=== PATIENT | female | born 1985 | race Caucasian/White ===

== ENCOUNTER 2017-12-30 15:52 | Inpatient (IN) ==
--- NOTE | 2017-12-30 16:30 | Emergency Department Note ---
Disposition Clinical Impression: Cellulitis Qualifiers: Site of cellulitis: unspecified site Qualified Code(s): L03.90 - Cellulitis, unspecified Disposition: Admitted As Inpatient Condition: Good Forms: ED Satisfaction Letter Lower Extremity Injury HPI - General Chief Complaint: ED Extremity Injury, Lower Stated Complaint: Right foot/leg infection back Time Seen by Provider: 12/30/17 16:11 Source: patient Mode of arrival: ambulatory Limitations: no limitations Nursing Notes Reviewed: Yes Vital Signs Reviewed: Yes - History of Present Illness HPI Narrative: patient presents with concern over a RLE cellulitis. patient c/o streaking, redness, erythema, to her R leg. Has been on ABX from outpatient. Patient symptoms started approximately last week. She noticed redness and streaking. She was seen in the emergency department and placed on Keflex 500 mg 3 times a day. She was initially helping but has gotten worse despite her taking antibiotics. Patient's got a wound to the metacarpal phalangeal joint of the first toe on the right foot with redness that goes from there to the mid thigh the follows the lymphatic vessels. A bedside ultrasound was performed and DVT was not found. Ultrasound of the calf was not performed. The surrounding lesions did not show significant cellulitis. Concern for lymphangitis. The p atient erythema extending from the first part of the toe does have is concern for possible underlying injury or osteoarthritis. Patient will receive x-ray as well as further blood work to help delineate. Patient has not had nausea vomiting, fevers or chills, abdominal pain. - Related Data Home Medications Medication Instructions Recorded Confirmed Buprenorphine HCl/Naloxone HCl 2 tab SL DAILY 12/30/17 12/30/17 [Buprenorphin-Naloxon 8-2 mg Sl] Allergies Allergy/AdvReac Type Severity Reaction Status Date / Time No Known Allergies Allergy Verified 08/10/17 20:52 All systems ED: reviewed and negative except as stated. 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 GENERAL history - Social History Smoking Status: Never smoker Smokeless Tobacco Status: No Alcohol use: Reports: none Drug use: Reports: none Physical Exam General appearance: NAD, conversant Eyes: anicteric sclerae, moist conjunctivae; no lid-lag; PERRL HENT: Atraumatic; oropharynx clear with moist mucous membranes Neck: Normal appearance; Trachea midline Chest: Symmetrical chest rise; No respiratory distress Extremities: Patient right toe at the left foot first toe phalangeal metacarpal interspace with Skin: Normal temperature, turgor and texture; no rash, ulcers or subcutaneous nodules Psych: Appropriate mood and affect Neuro: Awake and alert Course - Reevaluation(s) Reevaluation #1: ESR and CRP elevated. No elevated white count. X-rays negative for osteomyelitis. We will discuss with podiatry. - Consultations Consultation #1: Discussed with podiatry, Dr. Britton. Patient does not qualify for outpatient treatment. Trochars IV antibiotics and further investigation. He will consult on the patient tomorrow. Vital Signs Temperature 97.8 F 12/30/17 15:57 Pulse Rate 67 12/30/17 15:57 Respiratory Rate 18 12/30/17 15:57 Blood Pressure 133/81 12/30/17 15:57 O2 Sat by Pulse Oximetry 99 12/30/17 15:57 Temperature 97.8 F 12/30/17 16:30 Pulse Rate 67 12/30/17 16:30 Respiratory Rate 18 12/30/17 16:30 Blood Pressure 133/81 12/30/17 16:30 O2 Sat by Pulse Oximetry 99 12/30/17 16:30 Oxygen Delivery Oxygen Delivery Room Air Extremity Injury, Lower - Lab Data Result diagrams: 12/30/17 17:12 12/30/17 17:12 Lab Results 12/30/17 12/30/17 12/30/17 Range/Units 17:12 17:12 17:12 WBC 5.5 (4.3-11.1) K/mcL RBC 4.14 (3.82-4.97) M/mcL Hgb 11.7 (11.5-15.4) g/dL Hct 35.7 (35.3-44.9) % MCV 86.2 (83.0-100.0) fL MCH 28.3 (28.0-33.3) pg MCHC 32.8 (31.6-35.5) g/dL RDW 12.9 (11.5-14.5) % Plt Count 225 (140-400) K/mcL MPV 10.3 (9.4-12.4) fL Immature Gran % 0.2 (0-4) % Seg Neutrophils % 56.6 % Lymphocytes % 33.0 % Monocytes % 7.6 % Eosinophils % 2.2 % Basophils % 0.4 % Neutrophils # 3.1 (1.6-8.9) K/mcL Lymphocytes # 1.8 (0.6-4.6) K/mcL Monocytes # 0.4 (0.0-1.3) K/mcL Eosinophils # 0.1 (0.0-0.6) K/mcL Basophils # 0.0 (0.0-0.2) K/mcL ESR 48 H (0-15) mm/hr Sodium 139 (136-145) mEq/L Potassium 4.0 (3.5-5.1) mEq/L Chloride 104 (98-107) mEq/L Carbon Dioxide 29 (23-29) mEq/L BUN 10 (6-20) mg/dL Creatinine 0.51 L (0.60-1.20) mg/dL Est GFR ( Amer) > 60 (> 60) Est GFR (Non-Af Amer) > 60 (> 60) BUN/Creatinine Ratio 20 (6-26) Glucose 93 (70-105) mg/dL Calculated Osmolality 287 (280-300) Lactic Acid (0.5-2.2) mmol/L Calcium 9.3 (8.6-10.3) mg/dL C-Reactive Protein 18 H (Less than 10) mg/L 12/30/ Range/Units 17:12 WBC (4.3-11.1) K/mcL RBC (3.82-4.97) M/mcL Hgb (11.5-15.4) g/dL Hct (35.3-44.9) % MCV (83.0-100.0) fL MCH (28.0-33.3) pg MCHC (31.6-35.5) g/dL RDW (11.5-14.5) % Plt Count (140-400) K/mcL MPV (9.4-12.4) fL Immature Gran % (0-4) % Seg Neutrophils % % Lymphocytes % % Monocytes % % Eosinophils % % Basophils % % Neutrophils # (1.6-8.9) K/mcL Lymphocytes # (0.6-4.6) K/mcL Monocytes # (0.0-1.3) K/mcL Eosinophils # (0.0-0.6) K/mcL Basophils # (0.0-0.2) K/mcL ESR (0-15) mm/hr Sodium (136-145) mEq/L Potassium (3.5-5.1) mEq/L Chloride (98-107) mEq/L Carbon Dioxide (23-29) mEq/L BUN (6-20) mg/dL Creatinine (0.60-1.20) mg/dL Est GFR ( Amer) (> 60) Est GFR (Non-Af Amer) (> 60) BUN/Creatinine Ratio (6-26) Glucose (70-105) mg/dL Calculated Osmolality (280-300) Lactic Acid 1.0 (0.5-2.2) mmol/L Calcium (8.6-10.3) mg/dL C-Reactive Protein (Less than 10) mg/L
[2017-12-30 17:35] LABS: Basophils % 0.4 %; Eosinophils # 0.1 K/mcL (0.0-0.6); Eosinophils % 2.2 %; Hematocrit 35.7 % (35.3-44.9); Hemoglobin 11.7 g/dL (11.5-15.4); Immature Granulocytes % 0.2 % (0-4); Lymphocytes # 1.8 K/mcL (0.6-4.6); Mean Corpuscular HGB Conc 32.8 g/dL (31.6-35.5); Mean Corpuscular Hemoglobin 28.3 pg (28.0-33.3); Mean Corpuscular Volume 86.2 fL (83.0-100.0); Mean Platelet Volume 10.3 fL (9.4-12.4); Monocytes # 0.4 K/mcL (0.0-1.3); Monocytes % 7.6 %; Neutrophils # 3.1 K/mcL (1.6-8.9); Platelet Count 225 K/mcL (140-400); Red Blood Count 4.14 M/mcL (3.82-4.97); Red Cell Distribution Width 12.9 % (11.5-14.5); Segmented Neutrophils % 56.6 %
[2017-12-30 17:56] LABS: BUN/Creatinine Ratio 20 (6-26); Blood Urea Nitrogen 10 mg/dL (6-20); C-Reactive Protein 18 mg/L (Less than 10); Calcium 9.3 mg/dL (8.6-10.3); Carbon Dioxide 29 mEq/L (23-29); Chloride 104 mEq/L (98-107); Glucose 93 mg/dL (70-105); Osmolality,Calculated 287 (280-300); Sodium 139 mEq/L (136-145); eGFR For Non-African Americans > 60 (> 60)
[2017-12-30] MEDS ORDERED: cefTRIAXone 1,000 MG in Water for inj. (sterile) 20 ML 10 ML IVP ONE (18:27)
[2017-12-30] MEDS ORDERED: Ondansetron 4 MG/2 ML VIAL IVP PRN (20:43)
[2017-12-31] MEDS ORDERED: Naloxone 0.4 MG/ML INJ IVP PRN (02:02)
--- NOTE | 2017-12-31 02:13 | Internal Med History&Physical ---
Date of Encounter: 12/31/17 Time of Encounter: 01:45 Internal Medicine - H&P: HPI Chief complaint: Cellulitis Admitted From: Emergency Dept Plans for Post Hospital Care: Home History of present illness: Ms. Abbott is a 32 year old female Patient presented to the emergency room after failing outpatient management for cellulitis. She initially presented to the emergency room on the of this month and was diagnosed with cellulitis, she was given a dose of IV Rocephin and prescription for Keflex to take at home. She says that the redness did improve initially but over the last day or so it has gotten worse and more tender. Erythema extends up to the groin all the way down to the great toe. She does work at a job that requires her to be on her feet all day, and this makes the pain worse. She denies history of diabetes. She has no family doctor, and denies other medical history aside from being on Suboxone for a past pain medication problem. She denies chest pain, abdominal pain, dysuria, nausea, vo miting, diarrhea, constipation. She has never had an infection like this before. She denies any significant event that led to the initial wound as well. The emergency room CBC and BMP were within normal limits. CRP was elevated at 18, ESR elevated to 48. A left foot x-ray was ordered however the wound is on the right foot. Radiologist did however read it as a right foot, stating there were no significant findings of the right foot. She was started on IV antibiotics, podiatry was consulted and will see the patient in the morning. Upon my assessment, patient denies complaints. She states that she feels tired. The emergency room has traced the area of erythema, and it has not extended beyond this tracing. She had tried a athlete's foot cream initially, with no improvement as well. Past Med Surg Social Fam HX - Past Medical History Medical history: asthma, GERD Psychiatric history: no psych history - Past Surgical History Surgical History: no surgical history Additional surgical history: wisdom teeth removed - Social History Smoking Status: Never smoker Smokeless Tobacco Status: No Alcohol use: none Drug use: none - Family History Mother Living Status: Still Living Hx Family Cardiac Disorders: Yes (mi) Hx Family Respiratory Disorders: Yes (asthma, copd) Father Living Status: Still Living Hx Family Endocrine Disorder: Yes (kidney disease) Internal Medicine - H&P: Meds Buprenorphine HCl/Naloxone HCl [Buprenorphin-Naloxon 8-2 mg Sl] 2 tab SL DAILY 12/30/17 [History] Allergy/AdvReac Type Severity Reaction Status Date / Time No Known Allergies Allergy Verified 08/10/17 20:52 All Systems PM: A 10-system review of systems was performed and is negative for pertinent findings except as documented above in the HPI. - Constitutional Vitals: Temp Pulse Resp BP Pulse Ox 98.3 F 79 15 139/83 98 12/30/17 23:43 12/30/17 23:43 12/30/17 23:43 12/30/17 23:43 12/30/17 23:43 General appearance: Present: cooperative, A&O X 3, pleasant, no acute distress, answers questions appropriately Exam: As above - Head Head exam: Present: normal inspection - Eye Eye exam: Present: EOMI, normal appearance - Respiratory Respiratory exam: Present: CTAB. Absent: chest wall tenderness, decreased breath sounds, respiratory distress, wheezes - Cardiovascular Cardiovascular exam: Present: RRR. Absent: diastolic murmur, systolic murmur - GI/Abdominal GI/Abdominal exam: Present: normal bowel sounds, soft. Absent: tenderness - Extremities Exam Extremities exam: Present: tenderness, warm, radial pulses palpable and symmetrical. Absent: calf tenderness, pedal edema Additional comments: Right lower extremity has erythema from groin down to the foot medially, mildly tender to palpation. Redness if blanching with pressure. Right great toe ulceration on plantar surface, shallow with no discharge. 2cm x 1cm in size at site of MTP - Neurological Exam Neurological exam: Present: no focal deficits, strengths equal and symetr throughout. Absent: motor sensory deficit, facial droop, speech deficit - Skin Skin exam: Present: dry, erythema, rash, warm Additional comments: See extremities exam above Internal Med - H&P Results - Labs CBC & Chem 7: 12/31/17 04:28 12/31/17 04:28 Labs: Short CBC 12/30/17 Range/Units 17:12 WBC 5.5 (4.3-11.1) K/mcL Hgb 11.7 (11.5-15.4) g/dL Hct 35.7 (35.3-44.9) % Plt Count 225 (140-400) K/mcL Neutrophils # 3.1 (1.6-8.9) K/mcL BMP 12/30/17 17:12 Sodium 139 Potassium 4.0 Chloride 104 Carbon Dioxide 29 BUN 10 Creatinine 0.51 L Glucose 93 Calcium 9.3 - Impressions ITS Impressions Foot X-Ray 12/30/17 16:35 IMPRESSION: No significant finding in the right foot. D/ / Clinton Latham MD / Clinton Latham MD Interpreting Provider: Clinton Latham MD - Assessment and plan (1) Cellulitis Current Visit: Yes Status: Acute Assessment and plan: Extends from groin to the patient's foot. She has failed outpatient therapy with Keflex and IV Rocephin which was given to her on the . Vital signs stable. She was started on vancomycin and ceftriaxone in the emergency room. Continue IV antibiotics Follow-up blood cultures when they are available Podiatry consult in the morning Avoid narcotic pain medication, Tylenol as needed. Checking A1c in the a.m. labs Qualifiers: Site of cellulitis: unspecified site Qualified Code(s): L03.90 - Cellulitis, unspecified (2) Right leg pain Current Visit: Yes Status: Acute Assessment and plan: Secondary to cellulitis likely resulting from right great toe shallow ulcer. Treatment as above Podiatry consult in the morning (3) DVT prophylaxis Current Visit: Yes Status: Acute Assessment and plan: Subcutaneous heparin - Time Spent With Patient Total time spent is greater than 50% in coordination of care (as documented) at patient's floor/unit and/or counseling patient: Greater than 35 minutes
[2017-12-31] MEDS ORDERED: Acetaminophen 325 MG TABLET PO PRN (02:22)
[2017-12-31] MEDS ORDERED: Vancomycin 1,750 MG in 0.9 % Sodium Chloride 250 ML IVPB SCH (03:00)
[2017-12-31 04:59] LABS: Hematocrit 32.8 % (35.3-44.9); Hemoglobin 10.6 g/dL (11.5-15.4); Mean Corpuscular HGB Conc 32.3 g/dL (31.6-35.5); Mean Corpuscular Hemoglobin 27.7 pg (28.0-33.3); Mean Corpuscular Volume 85.9 fL (83.0-100.0); Mean Platelet Volume 10.2 fL (9.4-12.4); Platelet Count 217 K/mcL (140-400); Red Blood Count 3.82 M/mcL (3.82-4.97)
[2017-12-31 05:09] LABS: BUN/Creatinine Ratio 20 (6-26); Blood Urea Nitrogen 11 mg/dL (6-20); Calcium 8.9 mg/dL (8.6-10.3); Carbon Dioxide 29 mEq/L (23-29); Chloride 105 mEq/L (98-107); Glucose 103 mg/dL (70-105); Osmolality,Calculated 292 (280-300); Potassium 4.3 mEq/L (3.5-5.1); Sodium 141 mEq/L (136-145); eGFR For Non-African Americans > 60 (> 60)
[2017-12-31] MEDS: *HR* Heparin 5,000 UNIT/ML VIAL SQ SCH ×2 (06:32→18:05)
[2017-12-31 08:35] LABS: Estimated Average Glucose 120 mg/dl; Hemoglobin A1C 5.8 %
[2017-12-31] MEDS: cefTRIAXone 1,000 MG in Water for inj. (sterile) 20 ML 10 ML IVP SCH (09:00)
--- NOTE | 2017-12-31 10:27 | Event Note ---
Date of Encounter: 12/31/17 Time of Encounter: 10:25 Patient reports improvement in swelling and redness on her right lower extremity. She does have tenderness over her right foot on the plantar surface of the great toe. Also has mild right inguinal region tenderness. No fevers or chills reported overnight. We will continue current IV antibiotics. Limb elevation recommended. Await podiatry evaluation.
--- NOTE | 2017-12-31 14:42 | Podiatry Consult Note ---
Date of Encounter: 12/31/17 Time of Encounter: 11:35 Assessment and Plan (1) Cellulitis Current visit: Yes Status: Acute Laina-sized area of erythema noted to right MTPJ. Warm to touch Uric acid ordered. Erythema and edema noted to right lower extremity streaking of to right groin area. Positive Homans sign, positive pain with calf squeeze. Ordered right lower extremity venous Dopplers. Primary managing antibiotics. Qualifiers: Site of cellulitis: unspecified site Qualified Code(s): L03.90 - Cellulitis, unspecified (2) Tinea pedis, right Current visit: Yes Status: Acute Tinea pedis noted to right submetatarsal #1 and between webspaces. Ketoconazole 2% ordered. History of Present Illness HPI: Ms. Abbott is a 32 year old female with PMH of asthma, GERD. She denies being a smoker, illicit drug use despite taking Suboxone, ETOH abuse. Nurse reports patient has history of abuse of pain medication. Patient reports on the she started working at a [employer] 12 hour shifts, when she began wearing tennis shoes. She reports shoes were tight on her toes and causing pain that subsided after a few days. She reports itching and dryness to the right first sub- metatarsal. She states that she purchased [id number] athlete's foot cream and sprayed her shoes. Reports 5 days after she began to have pain on the top of her foot. She denies any trauma to site that she can remember. Reports 6 days after she began to have red splotchy streaking up her leg. She then noticed that the area of atheletes foot to the plantar side of foot had split. She went to the ER on the where she received Rocephin IM and was sent home on Keflex by mouth. She finished a week of antibiotics stating she missed a few doses but then doubled up on her other doses. She completed antibiotics and the pain and erythema were not improving so she came to the ER last evening . Mr. Powell is a 32-year-old female with edema and erythema noted to right lower extremity. Area of erythema marked. Warm to touch. Positive Homans sign. Pain with calf squeeze. Fissuring noted to right first submetatarsal in between webspaces. Past Med Surg Social Fam HX - Past Medical History Medical history: asthma, GERD Psychiatric history: no psych history - Past Surgical History Surgical History: no surgical history Additional surgical history: wisdom teeth removed - Social History Smoking Status: Never smoker Smokeless Tobacco Status: No Alcohol use: none Drug use: none - Family History Mother Living Status: Still Living Hx Family Cardiac Disorders: Yes (mi) Hx Family Respiratory Disorders: Yes (asthma, copd) Father Living Status: Still Living Hx Family Endocrine Disorder: Yes (kidney disease) Medications and Allergies Buprenorphine HCl/Naloxone HCl [Buprenorphin-Naloxon 8-2 mg Sl] 2 tab SL DAILY 12/30/17 [History] Allergy/AdvReac Type Severity Reaction Status Date / Time No Known Allergies Allergy Verified 08/10/17 20:52 All Systems Reviewed: The remainder of the systems were reviewed and are negative - Constitutional Constitutional: no fever(s) - Cardiovascular Cardiovascular: leg edema, pedal edema - Respiratory Respiratory: no dyspnea - Musculoskeletal Musculoskeletal: no muscle weakness, no numbness, no tingling Physical Exam - Constitutional Vitals: Temp Pulse Resp BP Pulse Ox 98.6 F 69 18 137/63 95 12/31/17 10:51 12/31/17 10:51 12/31/17 10:51 12/31/17 10:51 12/31/17 10:51 Exam: Constitiutional: Alert and oriented x 3. Vascular: 3/4 DP/PT bilaterally, CFT <3 sec to all digits, warm to warm from tibia to toes bilaterally, positive pain with calf squeeze, positive homans sign, 2+/4 edema RLE Neurologic: Positive light touch and pinprick test, normal plantar response, Normal position sense dorsiflexion/plantar flexion Dermatologic: Fissuring and flaking noted to right submetatarsal and in between webbed spaces. Erythema and edema noted to RLE. Area of erythema marked. Warm to touch. Dime sized area over right MTPJ red and warm to touch. Musculoskeletal: 5/5 muscle strength and normal tone bilaterally. Results - Labs Result Diagrams: 12/31/17 04:28 12/31/17 04:28 Labs: Abnormal lab results Hgb 10.6 g/dL (11.5-15.4) L 12/31/17 04:28 Hct 32.8 % (35.3-44.9) L 12/31/17 04:28 MCH 27.7 pg (28.0-33.3) L 12/31/17 04:28 ESR 48 mm/hr (0-15) H 12/30/17 17:12 Creatinine 0.55 mg/dL (0.60-1.20) L 12/31/17 04:28 Hemoglobin A1c 5.8 % (-5.6) H 12/31/17 04:28 C-Reactive Protein 18 mg/L (Less than 10) H 12/30/17 17:12 H & H 12/30/17 12/31/17 Range/Units 17:12 04:28 Hgb 11.7 10.6 L (11.5-15.4) g/dL Hct 35.7 32.8 L (35.3-44.9) % All other labs normal. - Diagnostic results Ankle/Foot x-ray: report reviewed Consult Discharge Plan - Plan Referrals: NONE,PCP [Primary Care Provider] -
[2018-01-01] MEDS: Ketoconazole 2% CRM 15 GM TUBE TP SCH ×2 (00:20→09:35)
[2018-01-01] MEDS: *HR* Heparin 5,000 UNIT/ML VIAL SQ SCH (06:10)
[2018-01-01] MEDS: cefTRIAXone 1,000 MG in Water for inj. (sterile) 20 ML 10 ML IVP SCH (09:35)
--- NOTE | 2018-01-01 10:07 | Internal Med Progress Note ---
Hospitalist Progress Note - Encounter Date of Encounter: 01/01/18 Time of Encounter: 08:10 - Subjective Interval History: Ms. Abbott is a 32Yo Female. Hospital day 1. Pt presented to ER last week for cellulitis of the RLE. Pt received a shot of rocephin and a prescription for Kefflex for outpatient management. 12/22/17 Pt stated redness and erythema initially started to subside, but increased in severity and tenderness about 2-3 days ago. Erythema and redness initially was located from the right great toe up to the groin area. 12/30/17 Right foot Xray was unremarkable 12/30/30 Podiatry ordered RLE venous doppler(found no DVT) and recommended continue antibiotics, noticed tinea pedis, ketoconazole ordered Today pt states she is doing better than yesterday. Area of erythema is marked and has not extended past the marked area. Pt denies fever, NVD, abdominal pain, constipation, streaking, SOB, chest pain, hematuria, dysuria. Pt does admit to some edema of the right LE, fatigue, as well as erythema/warmth in the right groin region, she states she has numbness and tingling in the right LE especially in the right heel that also occurred yesterday. The numbness/tingling has not worsened and has remained constant. - Exam Vitals: Temp Pulse Resp BP Pulse Ox 98.3 F 61 16 121/75 91 01/01/18 07:45 01/01/18 07:45 01/01/18 07:45 01/01/18 07:45 01/01/18 07:45 Exam: General: AAOX3, NAD, WDWN HEENT: normocephalic, atraumatic Cardiovascular: RRR, no rubs, no murmurs Lung: CTAB, no wheezing Abdomen: Normal BSX4, soft nontender to palpation, nondistended MSK: 5/5 strength in the LE bilaterally Neuro: sensation and pinprick normal in LE bilaterally Skin: erythema/warmth in the right groin area down to the medial right foot, shallow ulceration of right great toe at the metarsophalangeal joint without pus or other discharge - Assessment and Plan (1) Cellulitis Current Visit: Yes Status: Acute Assessment and Plan: erythema from right groin down to medial right foot, improved. Given Rocephin and Kefflex on 12/22/17 and failed outpatient management Returned to ED on 12/30/17 given IV vancomycin and ceftriaxone Blood cultures are being monitored for growth podiatry ordered RLE doppler which was negative for DVT, ordered ketoconazole for tinea pedis on right (2) Tinea pedis, right Current Visit: Yes Status: Acute (3) DVT prophylaxis Current Visit: Yes Status: Acute Assessment and Plan: Plan: -on heparin SQ - Time Spent with Patient Total time spent is greater than 50% in coordination of care (as documented) at patient's floor/unit and/or counseling patient: Internal Medicine: Result - Labs CBC & Chem 7: 12/31/17 04:28 12/31/17 04:28 - Impressions Impressions Foot X-Ray 12/30/17 16:35 IMPRESSION: No significant finding in the right foot. D/ / Clinton Latham MD / Clinton Latham MD Interpreting Provider: Clinton Latham MD Consult Discharge Plan - Plan Referrals: NONE,PCP [Primary Care Provider] - (1) Cellulitis Qualifiers: Site of cellulitis: unspecified site Qualified Code(s): L03.90 - Cellulitis, unspecified
--- NOTE | 2018-01-01 11:17 | Podiatry Progress Note ---
Date of Encounter: 01/01/18 Time of Encounter: 08:10 - Assessment and Plan (1) Cellulitis Current Visit: Yes Status: Acute Laina-sized area of erythema noted to right MTPJ. Warm to touch Uric acid 3.4. Erythema and edema noted to right lower extremity to right groin area, decreasing in size Positive pain with calf squeeze, improved since yesterday RLE venous Dopplers negative. Primary managing antibiotics. Qualifiers: Site of cellulitis: unspecified site Qualified Code(s): L03.90 - Cellulitis, unspecified (2) Tinea pedis, right Current Visit: Yes Status: Acute Tinea pedis noted to right submetatarsal #1 and between webspaces, improved from yesterday. Ketoconazole 2% ordered. Subjective Interval history: Patient sitting in bed. Alert oriented 3. Denies any overnight complications. Reports improvement of right plantar. Objective - Vital Signs Vital Signs: Vital Signs Temp Pulse Resp BP Pulse Ox 01/01/18 07:45 98.3 F 61 16 121/75 91 01/01/18 03:52 98.3 F 76 16 130/84 98 12/31/17 23:46 97.6 F 64 18 113/74 97 12/31/17 19:35 97.8 F 76 19 117/75 98 12/31/17 16:00 98.1 F 76 14 118/71 96 12/31/17 14:55 98.6 F 85 18 117/76 100 Intake and Output 12/31/17 01/01/18 01/01/18 23:59 07:59 15:59 Intake Total 250 / 250 150 / 150 260 / 260 Balance 250 / 250 150 / 150 260 / 260 Intake: IV Fluids 250 / 250 260 / 260 Rocephin 1,000 MG In Water for inj. (sterile) 10 ML @ 600 mls/ hr IVP DAILY [facility] Rx#:[id number] Vancocin 1,250 MG In 0.9 % 250 / 250 250 / 250 Sodium Chloride 250 ML @ 166.67 mls/hr IVPB Q12H [facility] Rx#: [id number] Oral 0 / 0 150 / 150 Other: Meal Lunch Percent of Meal Consumed 100% # Voids 1 1 Weight 119.98 kg Patient Weight 01/01/18 23:59 Weight 119.98 kg - Exam Exam: Constitiutional: Alert and oriented x 3. Vascular: 3/4 DP/PT bilaterally, CFT <3 sec to all digits, warm to warm from tibia to toes bilaterally, positive pain with calf squeeze reports less than yesterday, 1+/4 edema RLE Neurologic: Positive light touch and pinprick test, normal plantar response, Normal position sense dorsiflexion/plantar flexion Dermatologic: Fissuring and flaking noted to right submetatarsal and in between webbed spaces, improved from yesterday. Erythema and edema noted to RLE. Area of erythema marked, decreasing in size. Warm to touch. Dime sized area over right MTPJ red and warm to touch. Musculoskeletal: 5/5 muscle strength and normal tone bilaterally. - Lab Result Diagrams: 12/31/17 04:28 12/31/17 04:28 Labs: Abnormal lab results Hgb 10.6 g/dL (11.5-15.4) L 12/31/17 04:28 Hct 32.8 % (35.3-44.9) L 12/31/17 04:28 MCH 27.7 pg (28.0-33.3) L 12/31/17 04:28 ESR 48 mm/hr (0-15) H 12/30/17 17:12 Creatinine 0.55 mg/dL (0.60-1.20) L 12/31/17 04:28 Hemoglobin A1c 5.8 % (-5.6) H 12/31/17 04:28 C-Reactive Protein 18 mg/L (Less than 10) H 12/30/17 17:12 Microbiology, Last 48 Hours 12/30/17 17:12 Blood Culture - Preliminary Peripheral Venipuncture Culture is incubating and being continuously monitored for growth. Final report to follow. 12/30/17 17:12 Blood Culture - Preliminary Peripheral Venipuncture Culture is incubating and being continuously tha tored for growth. Final report to follow. Consult Discharge Plan - Plan Referrals: NONE,PCP [Primary Care Provider] -
[2018-01-01 12:10] VITALS: BP 124/80
--- NOTE | 2018-01-01 12:14 | Discharge Summary ---
<Valdo Manzano - Last Filed: 01/01/18 13:39> - NOTES TO OUTPATIENT PROVIDER Notes to Outpatient Provider: Improved on IV Vanc/Rocephin, d/c on Bactrim- f/u to ensure resolution of cellulitis. Prediabetic- recommend lifestyle modifications. Orders not resulted at time of discharge: Pending orders 12/30/17 17:12 Culture,Blood [BC] Stat 01/01/18 18:00 Vancomycin,Trough Timed Date of Encounter: 01/01/18 - Discharge Diagnosis (1) Cellulitis Priority: Primary Status: Acute Qualifiers: Site of cellulitis: unspecified site Qualified Code(s): L03.90 - Cellulitis, unspecified (2) Right leg pain Priority: Secondary Status: Acute (3) Tinea pedis, right Priority: Secondary Status: Acute (4) Prediabetes Priority: Secondary Status: Acute Assessment and Plan: Recommending weight loss with lifestyle modifications by diet and exercise. Follow up with PCP. Hospital course: I have re-performed and reviewed the history documented by the medical student, and I confirm its accuracy except as noted below. Of note, erythema markedly recessed from the previously outlined area. Otherwise agree with above history. Patient doing well, vitals stable. Plan to transition to PO antibiotics with plan to discharge today. Patient pre-diabetic, recommending lifestyle modifications with diet and exercise. Recommending compression stockings for edema and cellulitis. Plan to continue anti-fungals for tinea pedis. Discharge discussed with: patient, nurse - Time Spent with Patient Total time spent providing and/or coordinating discharge services: Greater than 30 minutes (40) - Discharge Medications Prescriptions: Comp.stocking,Knee,Long,Large [T.e.d. Anti-Embolism Stocking] 1 each MC DAILY 7 Days #1 each Ketoconazole 2% CRM [Nizoral Cream] 1 appl TP DAILY 14 Days #1 tube Sulfamethoxazole/Trimeth DS [Bactrim DS] 1 each PO BID 6 Days #11 tablet Home Medications: Buprenorphine HCl/Naloxone HCl [Buprenorphin-Naloxon 8-2 mg Sl] 2 tab SL DAILY 12/30/17 [History] Comp.stocking,Knee,Long,Large [T.e.d. Anti-Embolism Stocking] 1 each MC DAILY 7 Days #1 each 01/01/18 [Rx] Ketoconazole 2% CRM [Nizoral Cream] 1 appl TP DAILY 14 Days #1 tube 01/01/18 [Rx] Sulfamethoxazole/Trimeth DS [Bactrim DS] 1 each PO BID 6 Days #11 tablet 01/01/18 [Rx] Allergies/Adverse Reactions: Allergy/AdvReac Type Severity Reaction Status Date / Time No Known Allergies Allergy Verified 08/10/17 20:52 Date of admission: 12/31/17 12:29 Primary care physician: PCP NONE Consults: 12/30/17 18:30 Consult to Podiatry [CONS] Stat Consulting Provider: [facility] Reason for Consult: cellulitis; concern for possible underlying osteomeylitis Call Completed: Yes Discharging clinician: Carlos Enrique Rajan Anticipated date of discharge: 01/01/18 - Constitutional Vitals: Temp Pulse Resp BP Pulse Ox 98.4 F 71 16 124/80 98 01/01/18 12:09 01/01/18 12:09 01/01/18 12:09 01/01/18 12:09 01/01/18 12:09 General appearance: Present: cooperative, A&O X 3, pleasant, no acute distress, answers questions appropriately - Head Head exam: Present: atraumatic, normocephalic - Eye Eye exam: Present: EOMI, normal appearance - Neck Neck exam general surgery: Present: full ROM, supple - Respiratory Respiratory exam: Present: CTAB. Absent: respiratory distress, rhonchi, stridor, wheezes - Cardiovascular Cardiovascular exam: Present: RRR, +S1, +S2. Absent: diastolic murmur, gallop, rubs, systolic murmur - GI/Abdominal GI/Abdominal exam: Present: normal bowel sounds, soft. Absent: distended, tenderness - Extremities Exam Extremities exam: Present: warm. Absent: calf tenderness, cyanotic, pedal edema Additional comments: mild erythema and warmth to R upper medial thigh/groin area- significantly recessed from previously marked lined area. Mild tenderness to palpation to medical thigh. - Neurological Exam Neurological exam: Present: alert, oriented X3, no focal deficits - Psychiatric Psychiatric exam: Present: normal affect, normal mood - Patient Status Disposition: Home, Self-Care Condition: Good Functional capacity at discharge: independent ambulation Overall status at discharge: patient is progressing back to baseline - Discharge Instructions Instructions: Cellulitis (DC), Hyperglycemia, Non-Diabetic (DC) Follow Up With: [facility] [Outside] (f/u [facility] within a week.) Additional Instructions: Please complete your antibiotic as prescribed. Continue anti-fungal cream as recommended. Also recommend elevating infected leg when possible and wearing compression stocking to help with healing. We have sent referral to the [facility] to establish you with a primary care provider. They will call you to set up follow up. Please keep appointment as it is important to ensure resolution of your cellulitis and to follow up on your elevated blood glucose. Please return or seek medial care if you develop new or worsening symptoms such as worsening pain, fever, redness, numbness, tingling, etc. - Diet and Activity Activity: increase activity as tolerated Diet: advance to your usual diet <Rose Gan - Last Filed: 01/01/18 15:14> Orders not resulted at time of discharge: Pending orders 12/30/17 17:12 Culture,Blood [BC] Stat 01/01/18 18:00 Vancomycin,Trough Timed Time of Encounter: 08:10 - Discharge Diagnosis (1) Cellulitis Priority: Primary Status: Acute Assessment and Plan: erythema from right groin down to medial right foot, improved. Given Rocephin and Kefflex on 12/22/17 and failed outpatient management Returned to ED on 12/30/17 given IV vancomycin and ceftriaxone podiatry ordered RLE doppler which was negative for DVT Plan: -d/c with bactrim -compression stockings -f/u with podiatry outpatient -diabetic diet Qualifiers: Site of cellulitis: unspecified site Qualified Code(s): L03.90 - Cellulitis, unspecified (2) Tinea pedis, right Priority: Primary Status: Acute Assessment and Plan: tinea pedis infection of right submetatarsal region of great toe per podiatry plan: -2% ketoconazole topical (3) DVT prophylaxis Priority: Secondary Status: Acute Assessment and Plan: Plan: -on heparin SQ Hospital course: Ms. Abbott is a 32 year old female. Hospital day 1 Pt initially presented with cellulitis to the ED on 12/22/17 c/o erythema, and streaking of her right groin area down to her right medial foot. She was given a shot of rocephin and sent home with a prescription of Kefflex. She states the erythema initially decreased upon taking the antibiotics, but then increased in severity and tenderness 2-3 days ago. Pt admitted to missing a couple doses of her Kefflex, for which she then doubled up on the other doses. She returned to the ED on 12/30/17 c/o worsening pain and erythema. While in the ED she received IV vancomycin and ceftriaxone. R foot Xray was unremarkable. Podiatry was consulted and ordered a RLE venous doppler which was unremarkable, ketoconazole was ordered d/t new onset tinea pedis infection. Today pt states she is doing better than yesterday. Area of erythema is marked and has not extended past the marked area. Pt denies fever, NVD, abdominal pain, constipation, streaking, SOB, chest pain, hematuria, dysuria. Pt does admit to some edema of the right LE, fatigue, as well as erythema/warmth in the right groin region, she states she has numbness and tingling in the right LE especially in the right heel that also occurred yesterday. The numbness/tingling has not worsened and has remained constant. - Time Spent with Patient Total time spent providing and/or coordinating discharge services: Date of admission: 12/31/17 12:29 Primary care physician: PCP NONE Consults: 12/30/17 18:30 Consult to Podiatry [CONS] Stat Consulting Provider: [facility] Reason for Consult: cellulitis; concern for possible underlying osteomeylitis Call Completed: Yes - Constitutional Vitals: Temp Pulse Resp BP Pulse Ox 98.3 F 61 16 121/75 91 01/01/18 07:45 01/01/18 07:45 01/01/18 07:45 01/01/18 07:45 01/01/18 07:45 General appearance: Present: cooperative, A&O X 3, pleasant, no acute distress, answers questions appropriately - Head Head exam: Present: atraumatic, normocephalic - Respiratory Respiratory exam: Present: CTAB. Absent: wheezes - Cardiovascular Cardiovascular exam: Present: RRR. Absent: diastolic murmur, rubs, systolic murmur - GI/Abdominal GI/Abdominal exam: Present: normal bowel sounds, soft. Absent: distended, tend erness - Extremities Exam Additional comments: 5/5 strength in the LE bilaterally - Expanded Neurological Exam Sensory exam: lower extremity light touch: Normal, lower extremity pin prick: Normal - Skin Additional comments: erythema/warmth in the right medial groin area, shallow ulceration of right great toe at the metarsophalangeal joint without pus or other discharge <Carlos Enrique Rajan - Last Filed: 01/01/18 16:03> - NOTES TO OUTPATIENT PROVIDER Notes to Outpatient Provider: Patient was hospitalized with cellulitis involving her right lower extremity after she presented to the ER having completed c ourses of cephalexin. She had been partially compliant with her medications. However swelling and erythema in her right lower expected to worsen. As such she was hospitalized and treated with IV antibiotics. She also had a wound on the plantar surface of her right great toe and first metatarsal. This was evaluated by podiatry. There was concern for osteomyelitis but x-ray and lab work did not show any features of osteomyelitis. Patient did have mild tinea pedis. This was treated with ketoconazole. Patient is doing better today and her swelling and erythema has significantly decreased. She will be discharged today on Bactrim and will follow up with her primary care provider after discharge. Patient does have prediabetes and is recommended diabetic diet. Orders not resulted at time of discharge: Pending orders 12/30/17 17:12 Culture,Blood [BC] Stat 01/01/18 18:00 Vancomycin,Trough Timed Date of Encounter: 01/01/18 Time of Encounter: 15:57 Hospital course: Ms. Abbott is a 32 year old female - Time Spent with Patient Total time spent providing and/or coordinating discharge services: Date of admission: 12/31/17 12:29 Primary care physician: PCP NONE Consults: 12/30/17 18:30 Consult to Podiatry [CONS] Stat Consulting Provider: Podiat[facility] Reason for Consult: cellulitis; concern for possible underlying osteomeylitis Call Completed: Yes - Constitutional Vitals: Temp Pulse Resp BP Pulse Ox 98.4 F 71 16 124/80 98 01/01/18 12:09 01/01/18 12:09 01/01/18 12:09 01/01/18 12:09 01/01/18 12:09 Exam: . - Diet and Activity Diet: diabetic diet - Attending Attestation I saw evaluated and examined this patient and my medical decision-making was reviewed with the Resident Physician, Valdo Manzano. I agree with the documented findings, disposition and treatment plan as described except to any changes set forth below. We independently had [id number] contact with the patient. Patient was hospitalized with cellulitis involving her right lower extremity after she presented to the ER having completed courses of cephalexin. She had been partially compliant with her medications. However swelling and erythema in her right lower expected to worsen. As such she was hospitalized and treated with IV antibiotics. She also had a wound on the plantar surface of her right great toe and first metatarsal. This was evaluated by podiatry. There was concern for osteomyelitis but x-ray and lab work did not show any features of osteomyelitis. Patient did have mild tinea pedis. This was treated with ketoconazole. Patient is doing better today and her swelling and erythema has significantly decreased. She will be discharged today on Bactrim and will follow up with her primary care provider after discharge. Patient does have prediabetes and is recommended diabetic diet. On exam, patient is awake and alert. Obese. Abdomen is soft nontender. Erythema in her right lower extremity has significantly improved and is now restricted to a small part of her right upper medial thigh. It is warm to touch. Patient does describe numbness over her right heel. This can be followed further as outpatient if it does not improve.
[2018-01-01] MEDS ORDERED: Aminoglycoside Consult 1 EACH MC ONE (18:19)
== END 2018-01-01 18:20 | disposition home or self-care (01) | DRG 383 ==
LOC: EMEROOARM 15:52 → 3NENU 15:52 → SUATTDRO 18:47 → 3NENU 20:02
PROVIDERS: ADMIT Internal Medicine; ATTEND Internal Medicine

== ENCOUNTER 2020-10-09 16:28 | Observation (INO) ==
[2020-10-09 17:37] LABS: Bacteria,Urine Few per hpf (None-Few); Bilirubin,Urine Negative (Negative); Blood,Urine Small (Negative); Clarity,Urine Turbid (Clear); Color,Urine Light-Yellow (Yellow); Glucose,Urine (UA) Normal (Normal); Ketones,Urine 60 mg/dL (Negative); Leukocyte Esterase,Urine Large (Negative); Mucus,Urine Few per lpf (None-Few); Nitrite,Urine Negative (Negative); PH,Urine 6.5 pH Units (5.0-8.0); Protein,Urine Trace mg/dL (Neg-Trace); Specific Gravity,Urine 1.015 (1.010-1.025); Squamous Epithelial Cell,Urine Moderate per hpf (None-Few); Urobilinogen,Urine Normal (Normal)
[2020-10-09 19:43] LABS: Basophils % 0.2 %; Eosinophils % 0.2 %; Hematocrit 32.8 % (35.3-44.9); Immature Granulocytes % 0.3 % (0-4); Lymphocytes # 1.4 K/mcL (0.6-4.6); Lymphocytes % 13.9 %; Mean Corpuscular HGB Conc 33.5 g/dL (31.6-35.5); Mean Corpuscular Hemoglobin 29.5 pg (28.0-33.3); Mean Corpuscular Volume 87.9 fL (83.0-100.0); Mean Platelet Volume 10.8 fL (9.4-12.4); Monocytes # 0.3 K/mcL (0.0-1.3); Monocytes % 3.3 %; Platelet Count 207 K/mcL (140-400); Red Blood Count 3.73 M/mcL (3.82-4.97); Red Cell Distribution Width 13.6 % (11.5-14.5); Segmented Neutrophils % 82.1 %; White Blood Count 9.7 K/mcL (4.3-11.1)
[2020-10-09 22:44] LABS: INR 1.1; Prothrombin Time 12.4 Seconds (9.4-12.1)
== END 2020-10-09 23:34 | disposition home or self-care (01) ==
LOC: 1NENULAB
PROVIDERS: ADMIT Registered Nurse; ATTEND Registered Nurse

== ENCOUNTER → 2020-10-31 16:48 | Observation (INO) ==
[2020-10-31 15:20] LABS: Basophils % 0.2 %; Eosinophils # 0.1 K/mcL (0.0-0.6); Eosinophils % 0.5 %; Hematocrit 33.2 % (35.3-44.9); Immature Granulocytes % 0.3 % (0-4); Lymphocytes # 1.7 K/mcL (0.6-4.6); Lymphocytes % 18.1 %; Mean Corpuscular HGB Conc 33.1 g/dL (31.6-35.5); Mean Corpuscular Hemoglobin 29.7 pg (28.0-33.3); Mean Corpuscular Volume 89.7 fL (83.0-100.0); Mean Platelet Volume 11.6 fL (9.4-12.4); Monocytes # 0.4 K/mcL (0.0-1.3); Monocytes % 4.7 %; Neutrophils # 7.1 K/mcL (1.6-8.9); Platelet Count 184 K/mcL (140-400); Red Cell Distribution Width 13.5 % (11.5-14.5); Segmented Neutrophils % 76.2 %; White Blood Count 9.4 K/mcL (4.3-11.1)
[2020-10-31 15:38] LABS: Protein/Creatinine Ratio,Urine 0.27 mg/mg (0.00-0.20)
[2020-10-31 15:43] LABS: Alanine Aminotransferase 13 Units/L (7-52); Aspartate Amino Transferase 15 Units/L (13-39); BUN/Creatinine Ratio 19 (6-26); Blood Urea Nitrogen 10 mg/dL (6-20); Lactate Dehydrogenase 120 Units/L (140-271); Uric Acid 4.2 mg/dL (2.3-7.6); eGFR For African Americans > 60 (> 60); eGFR For Non-African Americans > 60 (> 60)
== END | disposition home or self-care (01) ==
LOC: 1NENULAB
PROVIDERS: ADMIT Advanced Practice Midwife; ATTEND Advanced Practice Midwife

== ENCOUNTER → 2020-11-14 14:00 | Observation (INO) ==
[2020-11-14 13:14] LABS: Bacteria,Urine Few per hpf (None-Few); Bilirubin,Urine Negative (Negative); Blood,Urine Large (Negative); Clarity,Urine Turbid (Clear); Color,Urine Yellow (Yellow); Glucose,Urine (UA) Normal (Normal); Ketones,Urine 10 mg/dL (Negative); Leukocyte Esterase,Urine Moderate (Negative); Mucus,Urine Few per lpf (None-Few); Nitrite,Urine Negative (Negative); PH,Urine 6.5 pH Units (5.0-8.0); Protein,Urine Trace mg/dL (Neg-Trace); RBC,Urine TNTC per hpf (0-3); Specific Gravity,Urine 1.017 (1.010-1.025); Squamous Epithelial Cell,Urine Few per hpf (None-Few); Urobilinogen,Urine Normal (Normal); WBC,Urine 0-3 per hpf (0-3)
== END | disposition home or self-care (01) ==
LOC: 1NENULAB
PROVIDERS: ADMIT Registered Nurse; ATTEND Registered Nurse

== ENCOUNTER 2020-12-01 21:15 | Inpatient (IN) ==
[2020-12-01] MEDS ORDERED: Naloxone 0.4 MG/ML INJ IVP PRN (21:44)
[2020-12-01] MEDS ORDERED: Azithromycin 500 MG in 0.9 % Sodium Chloride 250 ML IVPB PRN (21:44)
[2020-12-01] MEDS ORDERED: Lidocaine 1% 20 ML MDV INFILT PRN (21:44)
[2020-12-01] MEDS ORDERED: *HR* Nalbuphine 10 MG/ML AMPUL IV PRN (21:44)
[2020-12-01] MEDS ORDERED: Ondansetron 4 MG/2 ML VIAL IVP PRN (21:44)
[2020-12-01] MEDS ORDERED: Famotidine 20 MG/2 ML VIAL IVP PRN (21:44)
[2020-12-01] MEDS ORDERED: Metoclopramide 10 MG/2 ML VIAL IVP PRN (21:44)
[2020-12-01] MEDS ORDERED: Ringers Solution, Lactated 1,000 ML IVC SCH (21:45)
[2020-12-01] MEDS ORDERED: EPHEDrine 50 MG/ML VIAL IVP PRN (22:52)
[2020-12-01] MEDS ORDERED: Epidural Premix (fent/bupiv) 110 ML EP SCH (23:00)
[2020-12-01 23:04] LABS: Basophils % 0.1 %; Eosinophils # 0.1 K/mcL (0.0-0.6); Eosinophils % 0.5 %; Hematocrit 32.8 % (35.3-44.9); Hemoglobin 11.1 g/dL (11.5-15.4); Immature Granulocytes % 0.4 % (0-4); Lymphocytes # 1.8 K/mcL (0.6-4.6); Lymphocytes % 18.4 %; Mean Corpuscular HGB Conc 33.8 g/dL (31.6-35.5); Mean Corpuscular Hemoglobin 29.9 pg (28.0-33.3); Mean Corpuscular Volume 88.4 fL (83.0-100.0); Mean Platelet Volume 10.6 fL (9.4-12.4); Monocytes # 0.6 K/mcL (0.0-1.3); Monocytes % 5.7 %; Neutrophils # 7.3 K/mcL (1.6-8.9); Platelet Count 217 K/mcL (140-400); Red Blood Count 3.71 M/mcL (3.82-4.97); Red Cell Distribution Width 13.4 % (11.5-14.5); Segmented Neutrophils % 74.9 %; White Blood Count 9.7 K/mcL (4.3-11.1)
[2020-12-01] MEDS ORDERED: miSOPROStoL 25 MCG TABLET PO PRN (23:16)
[2020-12-01 23:39] LABS: Influenza A PCR Negative (Negative); Influenza B PCR Negative (Negative); Resp. Syncytial Virus PCR Negative (Negative); SARS-CoV-2 by PCR (In House) Negative (Negative)
[2020-12-02 00:43] LABS: Amphetamine Screen,Urine Negative ng/mL (Cutoff=1000); Barbiturate Screen,Urine Negative ng/mL (Cutoff=200); Benzodiazepines Screen,Urine Negative ng/mL (Cutoff=200); Cannabinoid Screen,Urine Negative ng/mL (Cutoff = 50); Cocaine Screen,Urine Negative ng/mL (Cutoff= 300); Opiate Screen,Urine Negative ng/mL (Cutoff=300); Phencyclidine Screen,Urine Negative ng/mL (Cutoff=25)
[2020-12-02] MEDS ORDERED: Oxytocin 20 units/ LR 1000 mL 20 UNIT/1,000 ML BAG IVC SCH ×2 (03:30→13:20)
[2020-12-02] MEDS ORDERED: Measles/Mumps/Rubella Vacc 0.5 ML VIAL SQ PRN (13:20)
[2020-12-02] MEDS ORDERED: Ondansetron ODT 4 MG TAB.RAPDIS SL PRN (13:20)
[2020-12-02] MEDS ORDERED: Lanolin 7 G OINT...G. TP PRN (13:20)
[2020-12-02] MEDS ORDERED: Benzocaine/Menthol 56 GM AEROSOL SPRAY TP PRN (13:20)
[2020-12-02] MEDS: Ibuprofen 600 MG TABLET PO SCH ×2 (15:21→21:55)
[2020-12-02] MEDS: Acetaminophen 325 MG TABLET PO SCH ×2 (15:21→21:55)
[2020-12-03] MEDS: Ibuprofen 600 MG TABLET PO SCH ×4 (05:14→23:17)
[2020-12-03] MEDS: Acetaminophen 325 MG TABLET PO SCH ×4 (05:14→23:22)
[2020-12-03 06:00] VITALS: O2SAT 99
[2020-12-03] MEDS: Prenatal Vit/FA 1 EACH TABLET PO SCH (07:35)
[2020-12-04] MEDS: Acetaminophen 325 MG TABLET PO SCH ×2 (05:14→11:04)
[2020-12-04] MEDS: Ibuprofen 600 MG TABLET PO SCH ×2 (05:16→11:04)
[2020-12-04 07:54] VITALS: BP 128/71; PULSE 69; TEMP 97.7
[2020-12-04] MEDS: Prenatal Vit/FA 1 EACH TABLET PO SCH (07:57)
== END 2020-12-04 13:30 | disposition home or self-care (01) | DRG 560 ==
LOC: 1NENULAB 21:15 → 1NENUOBS 12-02 13:18
PROVIDERS: ADMIT Registered Nurse; ATTEND Registered Nurse